=== PATIENT | female | born 1980 | race Two or more races ===

== ENCOUNTER 2020-11-17 08:48 | Inpatient (IN) | payer BC, OTHER ==
[~2020-11-17] VITALS: Ht 170.2 cm; Wt 95.8 kg
[2020-11-17 10:04] LABS: Basophils # (auto) 0 10 ^3/uL (0-0.2); Basophils % (auto) 0.2 % (0.0-2.0); Eosinophils # (auto) 0 10 ^3/uL (0-0.8); Eosinophils % (auto) 0.2 % (0.0-7.0); Hematocrit 38.4 % (36.0-46.0); Hemoglobin 13.1 g/dL (12.2-16.2); Lymphocytes # (auto) 1.3 10 ^3/uL (0.4-5.4); Lymphocytes % (auto) 10.6 % (10.0-50.0); Mean Corpuscular Hemoglobin 30.7 pg (28.0-32.0); Mean Corpuscular Hgb Conc. 34.2 g/dL (32.0-36.0); Mean Corpuscular Volume 89.8 fL (80.0-100.0); Monocytes # (auto) 0.6 10 ^3/uL (0-1.3); Monocytes % (auto) 4.9 % (0.0-12.0); Neutrophils # (auto) 10.2 10 ^3/uL (1.6-8.6); Neutrophils % (auto) 84.1 % (37.0-80.0); Nucleated Red Blood Cells % 0.1 %; Red Blood Cells 4.28 10^6/uL (4.0-5.20); Red Cell Distribution Width 13.1 % (11.8-14.3); White Blood Cell 12.2 10^3/uL (4.4-10.8)
[2020-11-17 10:06] LABS: Urine Bacteria FEW /hpf (None Seen); Urine Blood Negative /uL (Negative); Urine Mucus FEW (None Seen); Urine WBC 4 /hpf (0 - 5)
[2020-11-17 10:17] LABS: Albumin 2.7 g/dL (3.4-5.0); BUN/Creatinine Ratio 12.5; Calcium 8.4 mg/dL (8.5-10.1); Potassium 3.3 mmol/L (3.5-5.1)
[2020-11-17 10:19] LABS: Bilirubin, Total 0.4 mg/dL (0.2-1.0); Total Protein 8.2 g/dL (6.4-8.2)
[2020-11-17] MEDS ORDERED: SODIUM CHLORIDE 0.9% 1,000 ML IV ONE ×2 (11:00)
[2020-11-17] MEDS ORDERED: cefTRIAXone 1GM/50ML D5W 50 ML IV ONE (11:00)
[2020-11-17] MEDS ORDERED: metroNIDAZOLE 500MG/100ML 100 ML IV ONE (11:00)
[2020-11-17] MEDS ORDERED: MORPHINE SULFATE INJECTION 2 MG/ML SYRG IV PRN (11:30)
[2020-11-17] MEDS ORDERED: NITROGLYCERIN 0.4 MG SL TAB SL PRN (11:30)
[2020-11-17] MEDS: MORPHINE SULFATE INJECTION 2 MG/ML SYRG IV PRN ×3 (11:57→21:35)
[2020-11-17] MEDS: SOD CHL 0.45% WITH 20MEQ KCL 1,000 ML IV SCH ×2 (12:22→21:33)
[2020-11-17] MEDS: ONDANSETRON HCL 4 MG/2 ML VIAL IV PRN ×2 (16:05→21:35)
[2020-11-17] MEDS: metroNIDAZOLE 500MG/100ML 100 ML IV SCH (19:05)
[2020-11-18 02:02] VITALS: BP 120/76
[2020-11-18] MEDS: metroNIDAZOLE 500MG/100ML 100 ML IV SCH ×3 (03:21→18:22)
[2020-11-18 05:00] VITALS: BP 121/72
[2020-11-18 06:04] LABS: Basophils # (auto) 0 10 ^3/uL (0-0.2); Basophils % (auto) 0.3 % (0.0-2.0); Eosinophils # (auto) 0.1 10 ^3/uL (0-0.8); Hematocrit 34.3 % (36.0-46.0); Hemoglobin 11.6 g/dL (12.2-16.2); Lymphocytes # (auto) 1.9 10 ^3/uL (0.4-5.4); Lymphocytes % (auto) 21.8 % (10.0-50.0); Mean Corpuscular Hemoglobin 30.4 pg (28.0-32.0); Mean Corpuscular Hgb Conc. 33.8 g/dL (32.0-36.0); Monocytes # (auto) 0.6 10 ^3/uL (0-1.3); Neutrophils # (auto) 6.2 10 ^3/uL (1.6-8.6); Neutrophils % (auto) 69.9 % (37.0-80.0); Red Blood Cells 3.81 10^6/uL (4.0-5.20); Red Cell Distribution Width 13.1 % (11.8-14.3); White Blood Cell 8.9 10^3/uL (4.4-10.8)
[2020-11-18 06:38] LABS: Albumin 2.2 g/dL (3.4-5.0); BUN/Creatinine Ratio 3.6; Bilirubin, Total 0.2 mg/dL (0.2-1.0); Calcium 7.8 mg/dL (8.5-10.1); Total Protein 6.8 g/dL (6.4-8.2)
[2020-11-18 06:46] LABS: Potassium 2.9 mmol/L (3.5-5.1)
[2020-11-18] MEDS ORDERED: POTASSIUM CHL 20 Meq TABLET PO ONE (07:15)
[2020-11-18] MEDS: SOD CHL 0.45% WITH 20MEQ KCL 1,000 ML IV SCH ×2 (07:30→17:30)
[2020-11-18] MEDS: cefTRIAXone 1GM/50ML D5W 50 ML IV SCH (08:41)
[2020-11-18 09:00] VITALS: BP 117/76
[2020-11-18] MEDS: MORPHINE SULFATE INJECTION 2 MG/ML SYRG IV PRN (09:42)
[2020-11-18] MEDS: PANTOPRAZOLE 40 MG/10 ML VIAL INJ IV SCH (09:42)
[2020-11-18] MEDS: ONDANSETRON HCL 4 MG/2 ML VIAL IV PRN (09:43)
[2020-11-18] MEDS ORDERED: POTASSIUM CHLORIDE 40 MEQ, LIDOCAINE 1% (LOCAL ANESTH.) 4 ML in SODIUM CHL 0.9% 250 ML IV ONE (12:30)
[2020-11-18 13:02] VITALS: BP 101/69
[2020-11-18 17:01] VITALS: BP 122/80
[2020-11-18] MEDS ORDERED: DIPHENOXYLATE W/ATROPINE 2.5 MG TAB PO PRN (18:15)
[2020-11-18 22:00] VITALS: BP 137/88
[2020-11-19] MEDS: metroNIDAZOLE 500MG/100ML 100 ML IV SCH ×3 (03:07→21:27)
[2020-11-19] MEDS: SOD CHL 0.45% WITH 20MEQ KCL 1,000 ML IV SCH (04:09)
[2020-11-19 05:00] VITALS: BP 125/80
[2020-11-19 05:27] LABS: Basophils # (auto) 0 10 ^3/uL (0-0.2); Basophils % (auto) 0.2 % (0.0-2.0); Eosinophils # (auto) 0.2 10 ^3/uL (0-0.8); Eosinophils % (auto) 3.9 % (0.0-7.0); Hematocrit 33.1 % (36.0-46.0); Hemoglobin 11.3 g/dL (12.2-16.2); Lymphocytes # (auto) 1.8 10 ^3/uL (0.4-5.4); Lymphocytes % (auto) 28.9 % (10.0-50.0); Mean Corpuscular Hemoglobin 30.5 pg (28.0-32.0); Mean Corpuscular Hgb Conc. 34.1 g/dL (32.0-36.0); Mean Corpuscular Volume 89.4 fL (80.0-100.0); Monocytes # (auto) 0.6 10 ^3/uL (0-1.3); Monocytes % (auto) 9.3 % (0.0-12.0); Neutrophils # (auto) 3.6 10 ^3/uL (1.6-8.6); Neutrophils % (auto) 57.7 % (37.0-80.0); Nucleated Red Blood Cells % 0.1 %; White Blood Cell 6.2 10^3/uL (4.4-10.8)
[2020-11-19 06:21] LABS: Calcium 8.3 mg/dL (8.5-10.1); Potassium 3.5 mmol/L (3.5-5.1)
[2020-11-19 06:59] LABS: BUN/Creatinine Ratio 4.8
[2020-11-19 09:00] VITALS: BP 133/86
[2020-11-19] MEDS: cefTRIAXone 1GM/50ML D5W 50 ML IV SCH (09:40)
[2020-11-19] MEDS: PANTOPRAZOLE 40 MG/10 ML VIAL INJ IV SCH (09:40)
[2020-11-19 13:00] VITALS: BP 112/72
[2020-11-19] MEDS: CHOLESTYRAMINE 4 GM POWDER GT SCH (13:03)
[2020-11-19 17:00] VITALS: BP 127/83
[2020-11-19 22:00] VITALS: BP 103/58
[2020-11-20] MEDS: metroNIDAZOLE 500MG/100ML 100 ML IV SCH ×2 (02:59→11:34)
[2020-11-20 05:00] VITALS: BP 122/75
[2020-11-20 09:31] VITALS: BP 151/96
[2020-11-20] MEDS: cefTRIAXone 1GM/50ML D5W 50 ML IV SCH (09:50)
[2020-11-20] MEDS: PANTOPRAZOLE 40 MG/10 ML VIAL INJ IV SCH (09:50)
[2020-11-20] MEDS ORDERED: ONDA-144 PO (10:01)
[2020-11-20] MEDS ORDERED: METR500T PO (10:01)
[2020-11-20] MEDS ORDERED: LEVO-28 PO (10:01)
[2020-11-20] MEDS: CHOLESTYRAMINE 4 GM POWDER GT SCH (11:34)
[2020-11-20 11:54] VITALS: BP 151/96
[2020-11-20 12:39] VITALS: BP 155/89
== END 2020-11-20 13:22 | disposition home or self-care (01) | DRG 872 ==
LOC: ER 08:48 → OVERFLOW 11:28 → WEST WING 23:47
PROVIDERS: ADMIT Nurse Practitioner Acute Care; ATTEND Internal Medicine
DX: A41.9 Sepsis, unspecified organism (principal); E44.0 Moderate protein-calorie malnutrition; Z20.822 Contact with and (suspected) exposure to COVID-19; E11.9 Type 2 diabetes mellitus without complications; Z68.32 Body mass index [BMI] 32.0-32.9, adult; E66.01 Morbid (severe) obesity due to excess calories; E87.5 Hyperkalemia; E87.6 Hypokalemia; K52.9 Noninfective gastroenteritis and colitis, unspecified; Z98.84 Bariatric surgery status
CPT/HCPCS: 36415; 74176; 80048; 80053; 81001; 83605; 83735; 85025; 85048; 87040; 87045; 87426; 87427; 87493; 96365; 96368; C9113; G0378; J0696; J2001; J2405; J3490